=== PATIENT | female | born 1950 | race Caucasian/White ===

== ENCOUNTER 2017-02-09 00:29 | Day surgery (SDC) | payer MEDICARE, OTHER ==
[~2017-02-09] VITALS: Ht 167.6 cm; Wt 72.0 kg
[2017-02-09] MEDS ORDERED: Sodium Chloride LOK Flush 10 mL Syringe IV PRN (06:00)
[2017-02-09] MEDS ORDERED: fentaNYL-PF 50 mCg/mL 2 mL Inj IVPUSH PRN (06:00)
[2017-02-09] MEDS ORDERED: CYCL1DRO OP (10:54)
[2017-02-09] MEDS ORDERED: ACET-171 PO (10:54)
[2017-02-09] MEDS ORDERED: FLAX1CAP4 PO (10:54)
[2017-02-09] MEDS ORDERED: LEVO100T6 PO (10:54)
[2017-02-09] MEDS ORDERED: PSYL0.4C2 PO (10:54)
[2017-02-09] MEDS ORDERED: MAGN400T4 PO (10:54)
[2017-02-09] MEDS ORDERED: PROG100C6 PO (10:54)
[2017-02-09] MEDS ORDERED: HYDR30CR39 TP (10:54)
[2017-02-09] MEDS ORDERED: SERT20OR6 PO (10:54)
[2017-02-09] MEDS ORDERED: VERA120T5 PO (10:54)
[2017-02-09] MEDS ORDERED: ESTR1VAG3 VG (10:54)
[2017-02-09 10:55] VITALS: BP 123/65; PULSE 58; RESP 16; O2SAT 100
[2017-02-09] MEDS: 0.9% Sodium Chloride 1,000 ML IV SCH ×2 (11:02→11:40)
[2017-02-09 11:43] VITALS: BP 120/75; PULSE 84; RESP 14; O2SAT 97
[2017-02-09 11:53] VITALS: BP 105/57; PULSE 72; RESP 14; O2SAT 96
[2017-02-09 12:01] VITALS: BP 112/53; PULSE 65; RESP 14; O2SAT 97
--- NOTE | 2017-02-09 13:23 | ENDO ---
[address] [address] ENDOSCOPY PROCEDURE PATIENT: RADHA BLACKBURN : 1950 MR#: [id number] ADMIT: 02/09/2017 JOB ID: [id number] DATE: 02/09/2017 PROCEDURE: Colonoscopy. INDICATION: Screening. The patient's ASA classification is 2. Mallampati score is 2. MEDICATIONS: 1. Versed 6 mg. 2. Fentanyl 100 mcg. INSTRUMENT USED: PCF H 180 AL. PREPARATION QUALITY: Was good. PROCEDURE DETAILS: After informed consent was obtained, the patient was brought into the GI suite, where she was placed on oxygen via nasal cannula and monitored with continuous pulse oximeter, telemetry and blood pressure monitoring. A time-out was performed. Then, she was placed in the left lateral decubitus position and medications were administered for sedation. Digital rectal examination was performed, which was unremarkable. The colonoscope was then inserted into the rectum and advanced under direct visualization to the cecum, which was identified by the presence of the ileocecal valve and appendiceal orifice. Once the cecum was reached, the colonoscope was withdrawn back to the rectum as the mucosa and lumen were examined. In the rectum, retroflexion was performed. Following retroflexion, remaining air in the rectum was suctioned, and the procedure was completed. FINDINGS: 1. Scattered diverticula were seen throughout the left side of the colon. 2. Otherwise normal examination from rectum to cecum. IMPRESSION: Left-sided diverticulosis. RECOMMENDATIONS: Repeat colonoscopy in 10 years, sooner if symptoms should dictate. COMPLICATIONS: None. ESTIMATED BLOOD LOSS: 0.
== END 2017-02-09 23:59 | disposition home or self-care (01) ==
LOC: END 00:29
PROVIDERS: ATTEND Internal Medicine Gastroenterology
DX: Z12.11 Encounter for screening for malignant neoplasm of colon (principal); K57.30 Diverticulosis of large intestine without perforation or abscess without bleeding; I49.9 Cardiac arrhythmia, unspecified; R00.2 Palpitations; R01.1 Cardiac murmur, unspecified; E78.5 Hyperlipidemia, unspecified; E03.9 Hypothyroidism, unspecified; G47.33 Obstructive sleep apnea (adult) (pediatric); K76.0 Fatty (change of) liver, not elsewhere classified; Z85.528 Personal history of other malignant neoplasm of kidney
CPT/HCPCS: 99153; G0121; G0500; J7030